=== PATIENT | female | born 1965 | race Caucasian/White ===

== ENCOUNTER 2025-03-10 07:00 | Day surgery (SDC) | payer BC ==
[2025-03-10] MEDS: Lactated Ringers 1,000 ML IV SCH (07:22)
[2025-03-10] MEDS ORDERED: Propofol 200 MG/20 ML SDV ONE (08:14)
[2025-03-10] MEDS ORDERED: Midazolam 1 MG/ML 2 ML SDV ONE (08:14)
[2025-03-10] MEDS ORDERED: fentaNYL 100 MCG/2 ML SDV ONE (08:15)
== END 2025-03-10 10:15 | disposition home or self-care (01) ==
LOC: VM.SDS 07:00
PROVIDERS: ATTEND Family Medicine
DX: Z12.11 Encounter for screening for malignant neoplasm of colon (principal); K57.30 Diverticulosis of large intestine without perforation or abscess without bleeding; E11.65 Type 2 diabetes mellitus with hyperglycemia; Z80.0 Family history of malignant neoplasm of digestive organs; Z83.72 Family history of familial adenomatous polyposis; Z88.1 Allergy status to other antibiotic agents; Z91.013 Allergy to seafood; Z79.84 Long term (current) use of oral hypoglycemic drugs; Z79.899 Other long term (current) drug therapy
CPT/HCPCS: 00811; 45380; J2250; J2704; J3010; J7120